=== PATIENT | male | born 1965 | race African-American/Black ===

== ENCOUNTER 2016-06-30 11:22 | Inpatient (IN) | payer OTHER ==
--- NOTE | ~2016-06-30 | PN ---
Unit #: [id number] #: [id number] Patient: NYLA METZGER [id number] [facility] [address] [place] [address] [id number] MR#: [id number] NAME: NYLA METZGER ROOM: [facility] Age: 51 Sex: M Admission Date: 06/30/2016 : 1965 Attending Physician: Rohini Traylor M.D. Admitting Physician: Geraldine Lou PROGRESS NOTES DATE OF SERVICE: 07/03/2016 SUBJECTIVE Mr. Metzger is a 51-year-old male who was seen today and chart was reviewed, and case was discussed with the staff. He has been anxious, withdrawn, and rather seclusive to himself, and has been cooperative with treatment recommendation and has been taking the medications and tolerating them fairly well. MENTAL STATUS EXAMINATION Middle-aged male, who was casually dressed with fair personal hygiene, and appears to be in no acute distress or discomfort. He was awake and alert on interaction with intact orientation. His mood was anxious with a congruent affect. He denies any suicidal or homicidal ideations. His insight and judgment remain slightly impaired. TREATMENT PLAN 1. We will continue him on his current medications and treatment protocol. We will monitor his response and make further adjustments as needed. 2. We will continue to follow up. Dictated by... Geraldine Lou/lauren TD: 07/04/2016 13:35 JOB #: [id number] RYAN PROGRESS NOTES Page 1 of 1 X Rohini Traylor MD PROGRESS NOTE
--- NOTE | ~2016-06-30 | PN ---
Unit #: [id number] #: [id number] Patient: NYLA METZGER [id number] [facility] [address] [place] [address] [id number] I MR#: [id number] NAME: NYLA METZGER ROOM: [facility] Age: 51 Sex: M Admission Date: 06/30/2016 : 1965 Attending Physician: Rohini Traylor M.D. Admitting Physician: Rohini Traylor M.D. Primary Care Physician: María Doctor Not In System [facility] PROGRESS NOTES DATE July 02, 2016 DISCUSSION Mr. Metzger is a 51-year-old male, who was seen today and chart was reviewed and the case was discussed with the staff. He has been exhibiting some persistent depressive symptoms and he has been seclusive and isolative with minimal interaction and no significant emotion or improvement in her body language. Meanwhile, he has not shown any agitation or aggression and has been taking the medications and tolerating them fairly well with on reported side effects. MENTAL STATUS EXAMINATION Middle-aged male, who was casually dressed with fair personal hygiene and appears to be in no acute distress or discomfort. He was awake and alert with intact orientation. His mood is anxious and depressed with a congruent affect. He denies any suicidal or homicidal ideations, and also denies any auditory or visual hallucinations. His insight and judgment remain slightly impaired. TREATMENT PLAN 1. We will continue him on his current medications and treatment protocol, and will monitor his response to the medications, and make further adjustments as needed. 2. We will continue to followup. Dictated by... Geraldine Lou/dipak TD: 07/05/2016 10:35 JOB #: [id number] Unit #: [id number] #: [id number] Patient: NYLA METZGER PROGRESS NOTES Page 1 of 1 X Rohini Traylor MD PROGRESS NOTE
--- NOTE | ~2016-06-30 | HP ---
Unit #: [id number] #: [id number] Patient: NYLA CRNESHAW [id number] [facility] [address] [place] [address] [id number] I MR#: [id number] NAME: NYLA CRENSHAW ROOM: [facility] Age: 51 Sex: M Admission Date: 06/30/2016 : 1965 Attending Physician: Rohini Traylor M.D. Admitting Physician: Rohini Traylor M.D. Primary Care Physician: María Doctor Not In System HISTORY AND PHYSICAL HISTORY OF PRESENT ILLNESS Nyla is a 51 year old admitted to [facility] because of his drug use. He smokes crack. PAST MEDICAL HISTORY Long history of illicit substance abuse. PAST SURGICAL HISTORY Inguinal hernia repair. ALLERGIES No known drug allergies. SOCIAL HISTORY Smokes 1 pack per day. Drinks alcohol on occasion. Admits to using marijuana daily and has a long history of cocaine use. FAMILY HISTORY Medically noncontributory. REVIEW OF SYSTEMS CONSTITUTIONAL: No fever or chills. HEENT: Denies any sore throat, ear pain or runny nose. CARDIOVASCULAR: Denies chest pain, irregular heart rhythm or palpitations. CHEST: Denies shortness of breath or cough. No hemoptysis. GASTROINTESTINAL: Denies nausea, vomiting, diarrhea or chronic constipation. ENDOCRINE: Denies history of increased thirst or urination. No recent significant weight loss or gain. GENITOURINARY: Denies dysuria, frequency, or hematuria. SKIN: Denies any rashes. HEMATOLOGIC: Denies history of increased bleeding or bruising. MUSCULOSKELETAL: Denies any hot, swollen joints. No generalized muscle pain. NEUROLOGIC: Denies problems with vision or speech. No frequent, severe headaches. No numbness, tingling or weakness in any extremities. Denies loss of bladder or bowel control. CURRENT MEDICATIONS 1. Desyrel p.r.n. 2. Milk of Magnesia p.r.n. 3. Maalox p.r.n. 4. Tylenol p.r.n. Unit #: [id number] #: [id number] Patient: NYLA CRENSHAW 5. Nicotine patch 14 mg daily. PHYSICAL EXAMINATION GENERAL: Alert, well-nourished, in no apparent distress. VITAL SIGNS: Blood pressure 110/72, heart rate 80, respirations 16, temperature 98.6. WEIGHT: 167. HEIGHT: 5 feet 8 inches. SKIN: Warm and dry without rash or lesion. HEENT: Normocephalic. TMs not viewed. Oral and nasal passages clear. Conjunctivae clear. PERRLA. EOMs intact. NECK: Supple without lymphadenopathy or thyromegaly. HEART: Regular rate and rhythm without murmur. LUNGS: Clear. ABDOMEN: Soft, nontender. : Not done. EXTREMITIES: No evidence of cyanosis, clubbing or edema. Moves all without focal deficit. NEUROLOGICAL: Grossly within normal limits. Cranial Nerves: II: Visual bear are intact. III, IV AND : Extraocular movements are intact. Pupils are equal, round and reactive to light. V: Facial sensation is grossly normal. VII: Facial movements and expression are normal. VIII: Auditory acuity grossly intact. IX, X: Uvula is midline. Phonation is normal. XI: Patient shrugs shoulders and turns head normally. XII: Tongue protrudes in the midline. Sensory and Motor Function: Sensory and motor sensation is grossly normal. Motor: moves all extremities well. Coordination: Gait is normal. Deep Tendon Reflexes: Intact. IMPRESSION Psychiatric admission. RECOMMENDATIONS PSYCHIATRIC: Per psychiatrist. MEDICAL: See no contraindications to participate in facility's activities. MEDICAL PROGNOSIS Good. MEDICAL CONDITION Stable. Dictated by... Melissa ChamorroAAddy. for Geraldine Ryan/yaima TD: 06/30/2016 21:22 JOB #: [id number] Unit #: [id number] #: [id number] Patient: NYLA CRENSHAW HISTORY AND PHYSICAL Page 1 of 1 X Merced Espitia HISTORY AND PHYSICAL
--- NOTE | ~2016-06-30 | PN ---
Unit #: [id number] #: [id number] Patient: NYLA METZGER [id number] [facility] [address] [place] [address] [id number] I MR#: [id number] NAME: NYLA METZGER ROOM: [facility] Age: 51 Sex: M Admission Date: 06/30/2016 : 1965 Attending Physician: Rohini Traylor M.D. Admitting Physician: Rohini Traylor M.D. Primary Care Physician: María Doctor Not In System [facility] PROGRESS NOTES DATE 07/01/2016 DISCUSSION Mr. Metzger is a 51-year-old, male who was seen today and chart was reviewed and case was discussed with the staff. He has been anxious, withdrawn and rather seclusive to himself. Meanwhile, he has been cooperative with treatment recommendations. He has been taking medications and tolerating them fairly well with no reported side effects. MENTAL STATUS EXAM Middle-aged male who was casually dressed with fair personal hygiene, appears to be in no acute distress or discomfort. He was awake and alert with impaired attention and concentration. His mood was anxious with congruent affect. His speech was slow and restricted in content. His thought processes were disorganized with some looseness of associations. His insight and judgement remains significantly impaired. TREATMENT PLAN 1. We will continue him on his current medications and treatment protocol. We will monitor his response to the medication and make further adjustments as needed. 2. We will continue to follow up. Dictated by... Geraldine Lou/fely TD: 07/05/2016 01:38 JOB #: [id number] Unit #: [id number] #: [id number] Patient: NYLA METZGER PROGRESS NOTES Page 1 of 1 X Rohini Traylor MD PROGRESS NOTE
--- NOTE | ~2016-06-30 | DS ---
Unit #: [id number] #: [id number] Patient: [facility]ZGER [id number] [facility] [address] [place] [address] [id number] I MR#: [id number] NAME: NYLA METZGER ROOM: [facility] Age: 51 Sex: M Admission Date: 06/30/2016 : 1965 Discharge Date: Attending Physician: Rohini Traylor M.D. DISCHARGE SUMMARY IDENTIFYING DATA Mr. Metzger is a 51-year-old single male, who is a resident of [place], [place], and was self-referred to the hospital on a voluntary basis. DISCHARGE DIAGNOSES Psychiatric: Major depressive disorder, recurrent, moderate, without psychotic features; cocaine dependence, moderate. Medical: None. Stressors: Moderate psychosocial stressors. HISTORY OF PRESENT ILLNESS Please see initial psychiatric evaluation for details. PAST PSYCHIATRIC HISTORY Please see initial psychiatric evaluation for details. PAST MEDICAL HISTORY Please see initial psychiatric evaluation for details. HOSPITAL COURSE The patient was admitted to the adult chemical dependency and psychiatric unit at [facility] kathryn Baker and was oriented to the hospital environment. Routine p.r.n. medications were initiated, and he was started back on his home medication and Wellbutrin as an antidepressant was initiated as well. He was taking the medications regularly and was tolerating them fairly well and was able to show a decent and therapeutic response with improvement in depression and anxiety and was willing to continue treatment on an outpatient basis and as such, it was decided that he will be discharged home and will continue treatment on an outpatient basis. DISCHARGE MEDICATIONS Wellbutrin XL 150 mg in the morning for depression. DISCHARGE CONDITION Stable. PROGNOSIS Fair. Dictated by... Rohini Traylor M.D. Unit #: [id number] #: [id number] Patient: NYLA METZGER IAA/modl TD: 07/05/2016 06:42 JOB #: [id number] DISCHARGE SUMMARY Page 1 of 1 X Rohini Traylor MD DISCHARGE SUMMARY
--- NOTE | ~2016-06-30 | PA ---
Unit #: [id number] #: [id number] Patient: NYLA METZGER [id number] [facility] [address] [place] [id number] I MR#: [id number] NAME: NYLA METZGER ROOM: [facility] Age: 51 Sex: M Admission Date: 06/30/2016 : 1965 Date of Assessment: Attending Physician: Rohini Traylor M.D. Admitting Physician: Rohini Traylor M.D. Primary Care Physician: Generic Doctor Not In System PSYCHIATRIC ASSESSMENT IDENTIFYING DATA Mr. Metzger is a 51-year-old single male, who is a resident of [place], [place] and was self-referred to the hospital on a voluntary basis, though was initially brought in by crisis intervention team. CHIEF COMPLAINT "I came in because of crack." HISTORY OF PRESENT ILLNESS Mr. Martin is a 51-year-old male, who was brought to the hospital by police and upon presentation, he stated that he came in because of crack cocaine. He stated he could not walk no further and stated he came from [facility] and out there smoking crack cocaine and the police picked him about [facility] and he stated his daily crack use is about $300 a day and stated that he has been using crack cocaine since 1985 and has been using $300 a day for the past 5 days and has been on a binge and has been thinking about self harm "saying fuck it." He stated that he just could not do this anymore and did not want to go on like this anymore and that he would not disclose the plan and just shook his head and was tearful throughout assessment and turned away, the patient was crying towards the wall. He reports increasing depression, anxiety, irritability, restlessness, feelings of hopelessness and helplessness, and suicidal ideations and plan, but would not disclose the plan and as such, recommendation for inpatient level of care for safety and stabilization was made. SUBSTANCE ABUSE HISTORY The patient reports history of alcohol, cannabis, and cocaine abuse and currently cocaine has been his drug of choice and reports that he has been on a binge. PAST PSYCHIATRIC HISTORY The patient has had a history of chemical dependency treatment at [facility] and [facility] and review of the medical records indicate that currently he is not active in any treatment program, is not seeing a psychiatrist, not taking any psychotropic medications. PAST MEDICAL HISTORY No acute or chronic medical illnesses. ALLERGIES No known medication allergies. Unit #: [id number] #: [id number] Patient: NYLA METZGER CURRENT MEDICATIONS None. PERSONAL AND SOCIAL HISTORY A 51-year-old male, who reports that he is single, unemployed, and lives alone and has poor social support system. MENTAL STATUS EXAMINATION Middle-aged male, who was casually dressed with fair personal hygiene, and appears to be in no acute distress or discomfort. He was awake and alert on interaction with intact orientation to time, place, and person. His mood was anxious and depressed with a congruent affect. His speech was slow and restricted in content. His thought processes were disorganized with some looseness of associations and suicidal ideations. His insight and judgment remain significantly impaired. DIAGNOSTIC IMPRESSION Psychiatric: Major depressive disorder, recurrent, moderate, without psychotic features; cocaine dependence, moderate. Medical: None. Stressors: Moderate psychosocial stressors. TREATMENT PLAN 1. The patient has presented with a history of substance abuse and mood disorder, and has been decompensating and will need inpatient hospitalization for detoxification, safety, and stabilization. We will start him back on his home medications. We will adjust the medications and monitor response. 2. Supportive therapy was provided to the patient. ESTIMATED LENGTH OF STAY 5 to 7 days. ABILITY TO HELP SELF Limited. WILLINGNESS TO HELP SELF The patient appears to be willing to help self. STRENGTHS 1. Communicative. 2. Cooperative. PROBLEMS 1. Chronic dysphoric symptoms. 2. Poor social support system. DISCHARGE CRITERIA This will be contingent upon the patient's ability to go through detox without having any significant withdrawal symptoms as well as his ability to stay safe to himself, particularly after discharge from the hospital. Dictated by... Rohini Traylor M.D. Unit #: [id number] #: [id number] Patient: NYLA METZGER IAA/modl TD: 07/01/2016 07:38 JOB #: [id number] PSYCHIATRIC ASSESSMENT Page 1 of 1 X Rohini Traylor MD PSYCHIATRIC ASSESSMENT
--- NOTE | ~2016-06-30 | PN ---
Unit #: [id number] #: [id number] Patient: NYLA METZGER [id number] [facility] [address] [place] [address] [id number] MR#: [id number] NAME: NYLA METZGER ROOM: [facility] Age: 51 Sex: M Admission Date: 06/30/2016 : 1965 Attending Physician: Rohini Traylor M.D. Admitting Physician: Geraldine Lou PROGRESS NOTES DATE OF SERVICE: 07/04/2016 SUBJECTIVE Mr. Metzger is a 21-year-old male, who was seen today and chart was reviewed and the case was discussed with the staff. He has been anxious, withdrawn, and rather seclusive to himself. Meanwhile, he has been cooperative with the treatment recommendations and has been taking the medications and tolerating them fairly well with no reported side effects. MENTAL STATUS EXAMINATION Middle-aged male, who was casually dressed with fair personal hygiene, appears to be in no acute distress or discomfort. He was awake and alert with impaired attention and concentration. His mood was anxious with a congruent affect. His speech was slow and restricted in content. His thought processes were disorganized with some looseness of association. His insight and judgment remain slightly impaired. TREATMENT PLAN 1. We will continue him on his current medications and treatment protocol. We will monitor his response to the medications and make further adjustments as needed. 2. We will continue to follow up. Dictated by... Geraldine Lou/lauren TD: 07/04/2016 14:38 JOB #: [id number] Unit #: [id number] #: [id number] Patient: NYLA METZGER PROGRESS NOTES Page 1 of 1 X Rohini Traylor MD PROGRESS NOTE
[2016-07-01 10:07] LABS: ALBUMIN SERUM 3.5 g/dL (3.5-5.0); BILIRUBIN,TOTAL 0.8 mg/dL (0.2-2.0); BUN/CREATININE RATIO 17.5; CALCIUM SERUM 9.3 mg/dL (8.4-10.2); CREATININE SERUM 0.8 mg/dL (0.6-1.4); GLOM FILT RATE Estimated 119.9 mL/min (>60); PROTEIN TOTAL SERUM 6.3 g/dL (6.0-8.3)
[2016-07-01 10:08] LABS: THYROID STIMULATING HORMONE 0.42 uIU/ml (0.34-5.60)
[2016-07-01 10:09] LABS: BASOPHIL% 0.2 % (0-2.5); EOSINOPHIL# 0.1 X10e3 (0-0.7); EOSINOPHIL% 1.2 % (0.0-7.0); HEMATOCRIT 42.2 % (38.0-50.0); LYMPHOCYTE# 1.6 X10e3 (1.0-3.5); LYMPHOCYTE% 29.3 % (17.0-45.0); MEAN CORPUSCULAR HEMOGLOBIN 28.6 PG (28-34); MEAN CORPUSCULAR HGB CONC 33.2 g/dL (30-36); MEAN PLATELET VOLUME 9.5 FL (6.5-11.5); MONOCYTE# 0.5 X10e3 (0-1.0); NEUTROPHIL# 3.4 X10e3 (1.5-7.1); NEUTROPHIL% 60.3 % (40-75); PLATELET COUNT 278 X10e3 (140-420); RED BLOOD COUNT 4.91 X10e (3.90-5.60); RED CELL DISTRIBUTION WIDTH 12.8 % (11.0-15.5); WHITE BLOOD COUNT 5.6 X10e3 (4.0-10.5)
[2016-07-01 10:17] LABS: FREE THYROXIN (T4) 0.81 ng/dL (0.58-1.64)
[2016-07-01 10:50] LABS: DIFF IND NO
[2016-07-05 09:30] LABS: URINE APPEARANCE CLEAR; URINE BILIRUBIN NEG (NEG); URINE BLOOD NEG (NEG); URINE COLOR YELLOW; URINE GLUCOSE NEG (NEG); URINE KETONE NEG (NEG); URINE LEUKOCYTE ESTERASE NEG (NEG); URINE NITRATE NEG (NEG); URINE PH 6.5 (5-8); URINE PROTEIN NEG (NEG); URINE SPECIFIC GRAVITY 1.009 (1.003-1.035)
[2016-07-05 09:52] LABS: AMPHETAMINE NEG (NEG); BARBITURATES NEG (NEG); BENZODIAZEPINES NEG (NEG); COCAINE NEG (NEG); MARIJUANA NEG (NEG); OPIATES NEG (NEG); TRICYCLIC ANTIDEPRESSANTS NEG (NEG); U METHADONE NEG (NEG)
== END 2016-07-06 09:30 | DRG 885 ==
LOC: P1E 11:22
PROVIDERS: Psychiatry & Neurology Psychiatry
PROC: HZ2ZZZZ Detoxification Services for Substance Abuse Treatment (ICD-10-PCS; principal; 2016-06-30)
DX: F33.1 Major depressive disorder, recurrent, moderate (principal); F14.20 Cocaine dependence, uncomplicated; F17.200 Nicotine dependence, unspecified, uncomplicated; F41.9 Anxiety disorder, unspecified
CPT/HCPCS: 80053; 80307; 81003; 84439; 84443; 85025